=== PATIENT | female | born 1955 | race Caucasian/White ===

== ENCOUNTER → 2022-07-09 09:47 | Outpatient (BNVA) | payer MEDICARE, SELFPAY | PROVIDERS: Family Provider Pediatrics; PCP Pediatrics; Referring Provider Dermatology; Visit Provider Orthopaedic Surgery | DX: S46.011A Strain of muscle(s) and tendon(s) of the rotator cuff of right shoulder, initial encounter (principal) | CPT/HCPCS: 99203 ==

== ENCOUNTER → 2022-07-30 09:43 | Outpatient (BNVA) | payer MEDICARE, SELFPAY | PROVIDERS: Family Provider Pediatrics; PCP Pediatrics; Visit Provider Orthopaedic Surgery | DX: W06.XXXA Fall from bed, initial encounter (principal); M19.011 Primary osteoarthritis, right shoulder; S46.011A Strain of muscle(s) and tendon(s) of the rotator cuff of right shoulder, initial encounter | CPT/HCPCS: 99213 ==

== ENCOUNTER 2022-08-22 05:27 | Day surgery (SDC) | payer MEDICARE, SELFPAY ==
[2022-08-21 11:30] VITALS: BMI 43.9
[2022-08-22] VITALS (14 sets, daily range): BP systolic 151–179; BP diastolic 72–92; PULSE 62–79; RESP 16–24; TEMP 36.3–36.6; O2SAT 90–98
[2022-08-22] MEDS: acetaminophen 500 mg Tablet 1000 MG PO (06:14)
[2022-08-22] MEDS: CELEcoxib 200 mg Capsule 400 MG PO (06:16)
[2022-08-22] MEDS: sodium chloride 0.9% 1,000 ML 30 ML IV (06:27)
--- NOTE | 2022-08-22 06:59 | W.PM.OPSUD ---
Surgery/Procedure H&P Update DATE OF PROCEDURE: August 22, 2022 DATE H&P PERFORMED: 07/30/22 H&P UPDATE INFORMATION: I have reviewed H&P completed within last 30 days PREOP DIAGNOSIS: Left rotator cuff tear PLANNED PROCEDURE: Operation Date: 08/22/22 07:00 Proposed Procedures p right shoulder arthroscopy with rotator cuff repair/ 58332 S46.011A(Right) - Seb Calderón MD s Rotator Cuff Repair(Right) - Seb Calderón MD
[2022-08-22] MEDS: ceFAZolin 2,000 MG in sodium chloride 0.9% (plus) 50 ML 100 MG IV (07:09)
--- NOTE | 2022-08-22 08:43 | P.OP_ITS ---
Operative Report Date of procedure: August 22, 2022 Pre-op diagnosis: Preop Diagnosis Left rotator cuff tear, impingement Post-op diagnosis: same Procedure done: Arthroscopic repairrotator cuff with bio inductive implant, subacromial decompression left shoulder Implants: Cho and Nephew Regeneten implant, Cho [employer] Nephew Helicoil 4.5 mm anchor with tape Pathology: none sent Anesthesia: General and Nerve Block (Interscalene) Estimated blood loss (mL): 10 Findings: The patient had a degenerative rotator cuff with partial-thickness tearing throughout the supraspinatus insertion and a small area of full-thickness tearing perhaps 5 mm in diameter involving the anterior cable. She had prominent anterior spurring. Her biceps tendon attachment was intact and there was minimal degeneration of the intra-articular base. No chondromalacia was identified. Condition: stable Disposition: PACU Brief History: Ms. Yun is a 66-year-old female who injured her left shoulder with a fall out of bed 6 months ago with persistent pain. MRI revealed Small area of full- thickness rotator cuff tearing and degeneration of the rotator cuff. She is managing with physical therapy without improvement. She elected for rotator cuff repair to improve pain and function. Procedure: The patient was given interscalene block in holding. She was taken to the operating room and given 2 g of Ancef. She was positioned in the lateral position with her right arm in 15 mL 20 pounds of traction. A timeout was performed. Posterior portal was made 2 cm inferior medial to the posterior corner of acromion. A scope cannula and trocar were driven into the glenohumeral joint. An 8 mm anterior inflow cannula was placed. The diagnostic portion arthroscopy was performed. Essentially no degenerative changes were seen in the humeral head or glenoid. Her labral attachments the reasonably healthy and her biceps tendon revealed only minor degeneration. The undersurface of the rotator cuff was inspected revealing areas of partial- thickness articular sided tearing with more extensive tearing anteriorly. The scope was then moved to the subacromial space and an 8 mm inflow cannula placed anteriorly. A spinal needle was used to localize a lateral portal. Bursal tissue was removed with the Cho and Nephew Werewolf and the supraspinatus tendon identified. The area of full-thickness tearing was identified in the anterior rotator cuff. The shaver was used to debride the greater tuberosity footprint anteriorly. Through a lateral stab wound a Cho and Nephew Helicoil 4.5 mm anchor was placed. The Cho and Nephew FirstPass suture passer was used to shuttle 1 limb of tape through the area of full-thickness tearing I directed 1 suture as posteriorly as possible through the cuff and 1 anteriorly. Suture was secured drawing the rotator cuff down to the debrided footprint. As widespread tendinosis was identified in the supraspinatus tendon on MRI and arthroscopy decision was made to proceed with biological augmentation. Through a lower lateral stab wound a Cho and Nephew Regeneten past. It was fixed medially with 2 soft tissue silviano. A third staple was placed in the midsection anteriorly and a fourth in for staple posteriorly. Free bone silviano were placed laterally securing the most lateral edge of the patch to bone completely overlying the repair. The shoulder was irrigated with saline. Portals were closed with 3-0 Prolene. Sterile dressings were applied. The patient was placed in a sling, extubated, and taken to recovery room in stable condition.
--- NOTE | 2022-08-22 08:53 | ANES.PREANE2 ---
Pre-Anesthetic Assessment Height/Weight: Height 1.52 m Weight 102.058 kg Temp Pulse Resp BP Pulse Ox O2 Del Method 97.9 F 77 16 179/86 96 08/22/22 06:07 08/22/22 06:07 08/22/22 06:07 08/22/22 06:07 08/22/22 06:07 08/22/22 06:07 Preop Diagnosis: Left rotator cuff tear Operation Date: 08/22/22 07:00 Proposed Procedures p right shoulder arthroscopy with rotator cuff repair/ 37772 S46.011A(Right) - Seb Calderón MD s Rotator Cuff Repair(Right) - Seb Calderón MD Familial anesthetic complications: none Was Beta Jeff taken within 24 hours: N/A Was Clonidine taken within 24 hours: N/A Last intake: Intake Last Liquid Date 08/21/22 Last Liquid Time 21:00 Last Solid Date 08/21/22 Last Solid Time 21:00 Social No alcohol and No tobacco Exam alert, oriented x 3, clear to auscultation bilaterally and regular rate & rhythm Airway Submandibular: within normal limits Cervical ROM: within normal limits Mallampati: Class II Dentition: chipped CV/HEM Hypertension Metabolic Hyperlipidemia and Morbid Obesity Anesthetic Plan ASA status: 3 Anesthesia: General and Regional (specify below) (Right interscalene nerve blk) Medications/Allergies Home Medications Medication Instructions Recorded Confirmed Last Taken Type amlodipine 10 mg tablet 10 mg PO DAILY 07/09/22 08/22/22 08/21/22 History gabapentin 300 mg capsule 300 mg PO BID 07/09/22 08/21/22 08/21/22 History pravastatin 40 mg tablet 40 mg PO DAILY 07/09/22 08/22/22 08/21/22 History cyclobenzaprine 5 mg tablet 5 mg PO TID PRN Muscle Spasm 08/21/22 08/21/22 Unknown History oxycodone 5 mg tablet 5 mg PO Q4H PRN pain #40 tabs 08/22/22 Unknown Rx Allergies Allergy/AdvReac Type Severity Reaction Status Date / Time codeine Allergy Mild ADR-Faintin Verified 08/15/22 11:42 g Current Medications Generic Name Dose Route Start Last Admin Trade Name Freq PRN Reason Stop Dose Admin Sodium Chloride 1,000 mls @ 30 mls/hr 08/22/22 05:45 08/22/22 06:27 Sodium Chloride 0.9% IV 08/23/22 05:44 30 mls/hr .Q24H MAK Administration PFSH Anesthesia Social History Smoking and tobacco status: never smoked Alcohol intake: never Substance/Drug Use: never Data Anesthesia Cardiac Studies: No Data to Display Anesthesia Procedures Nerve Block Nerve Block 1: Main Anesthesia: general anesthesia Time Out Performed: Yes Consent: requested by attending/covering physician, from patient, risks and benefits reviewed and patient agrees to proceed Nerve block location: interscalene (right) Anesthesia monitors applied: pulse oximetry, EKG, BP cuff and oxygen Nerve block position: semi sitting Anesthetic Used: ropivicaine 0.5% Amount of anesthesia used (mL): 30 Ultrasound used to: recognize landmarks and visualize and ID brachial plexus Interscalene/Femoral BLK: 2 stimuplex 22 g needle used for position and inplane approach Injection: neg aspiration of heme Patient Tolerated Procedure: well Complications: none
--- NOTE | 2022-08-22 09:39 | SUR.PHASEI ---
0906 PT TO PACU 5 PT WITH ORAL AIRWAY IN PLACE WITH GOOD RESP EFFORT NOTED 8L MASK TO PT, IV TO LT AC #22 WITH 350 ML NS AT KVO RATE PATENT ID BRACELET TO LT WRIST PT ID'D X 2 IDENTIFIERS PT MONIOTR SR WITH NO ECTOPY NOTED RT SHOULDER DRESSING D/I WITH FIRST ICE TO SITE, SLING TO RT ARM DISTAL FINGERS PINK WARM WITH CAP REFILL LESS THAN 3 SECONDS. BILAT SCDS ON AND WORKING HOB AT 30 DEGREES. 0912 PT AWAKES ORAL AIRWY OUT PT DENIES PAIN AND NAUSEA, HOB UP TO 40 DEGREES , DRESSING D/I PT TALKATIVE AND COUGHING OFF AND ON, GOOD RESP EFFORT NOTED NO DISTRESS, VSS MONITOR UNCHANGED.
--- NOTE | 2022-08-22 09:49 | SUR.PHASEI ---
0925 PT MORE AWAKE, PT STILL COUGHING FREQUENTLY SATS 88% ON RA , PT PLACED ON 2LNC SATS QUICKLY UP TO 92% PT HOB AT 45 DEGREES PT TAKING OCC ICE CHIPS.
--- NOTE | 2022-08-22 10:07 | SUR.PHASEI ---
7688 PT MOVED SELF UP IN BED TO BETTER POSITION, PT AWAKE ALERT ASKING FOR SPRITE, LUNGS CLEAR TO ALL [facility], NOT DIMINISHED RESPIRATIONS SLIGHTLY TACHYPNEIC BUT NOT LABORED. PT VERY TALKATIVE ASKING FOR PHASE 2 NURSE BRANT BY NAME, VSS. DRESSING D/I HANDOFF AT BEDSIDE.
[2022-08-22] MEDS: oxyCODONE-APAP 5-325 mg Tablet 1 TAB PO (10:35)
--- NOTE | 2022-08-22 12:17 | P.PCN_ITS ---
PACU note Narrative: VSS, Good respiratory effort, report to MACHINE OPERATOR ASSISTANT Exam: awake
--- NOTE | 2022-08-22 12:17 | PM.PACU ---
PACU note Narrative: VSS, Good respiratory effort, report to OFFICE CASHIER Exam: awake
--- NOTE | 2022-08-22 15:13 | ANE.PACU2 ---
Inpatient post-anesthesia follow up: Airway intact: Yes Vital signs: Temperature 98 F Pulse Rate 66 Respiratory Rate 17 Blood Pressure 155/72 Pulse Oximetry 98 Oxygen Delivery Me thod Nasal Cannula Oxygen Flow Rate 2.0 Fraction of Inspir ed Oxygen Hydration adequate: Yes Nausea and vomiting: No Pain level: 3 Mental status: Baseline Additional Comments: Some SOB likely from block of phrenic nerve, discussed with patient
== END 2022-08-22 11:10 | disposition home or self-care (01) ==
PROVIDERS: PCP Pediatrics; Visit Provider Orthopaedic Surgery
PROC: (CPT 29805; principal; 2022-08-22 07:00)
PROC: (CPT 29826; 2022-08-22 07:00)
DX: M75.102 Unspecified rotator cuff tear or rupture of left shoulder, not specified as traumatic (principal); M75.42 Impingement syndrome of left shoulder; I10 Essential (primary) hypertension; E78.5 Hyperlipidemia, unspecified; E66.01 Morbid (severe) obesity due to excess calories; Z68.41 Body mass index [BMI] 40.0-44.9, adult
CPT/HCPCS: 29826; 29827; C1713; J0690; J1100; J2250; J2405; J2704; J2795; J3010; J3490; J7030

== ENCOUNTER → 2022-09-04 11:07 | Outpatient (BNVA) | payer MEDICARE, SELFPAY | PROVIDERS: PCP Pediatrics; Visit Provider Orthopaedic Surgery | DX: Z98.890 Other specified postprocedural states (principal) | CPT/HCPCS: 99024 ==

== ENCOUNTER → 2022-10-22 11:01 | Outpatient (BNVA) | payer MEDICARE, SELFPAY | PROVIDERS: PCP Pediatrics; Visit Provider Orthopaedic Surgery | DX: Z47.89 Encounter for other orthopedic aftercare (principal) | CPT/HCPCS: 99024 ==

== ENCOUNTER → 2022-11-19 10:35 | Outpatient (BNVA) | payer MEDICARE, SELFPAY | PROVIDERS: PCP Pediatrics; Visit Provider Orthopaedic Surgery | DX: Z98.890 Other specified postprocedural states (principal) | CPT/HCPCS: 99024 ==

== ENCOUNTER → 2023-02-04 10:44 | Outpatient (BNVA) | payer MEDICARE, SELFPAY | PROVIDERS: PCP Pediatrics; Visit Provider Orthopaedic Surgery | DX: Z98.890 Other specified postprocedural states (principal); M67.911 Unspecified disorder of synovium and tendon, right shoulder | CPT/HCPCS: 20610; 99213; J0702; J3490 ==

== ENCOUNTER → 2023-03-04 10:56 | Outpatient (BNVA) | payer MEDICARE, SELFPAY | PROVIDERS: PCP Pediatrics; Visit Provider Nurse Practitioner Family | DX: Z98.890 Other specified postprocedural states (principal); M67.911 Unspecified disorder of synovium and tendon, right shoulder | CPT/HCPCS: 99213 ==

== ENCOUNTER → 2023-05-13 10:45 | Outpatient (BNVA) | payer MEDICARE, SELFPAY | PROVIDERS: PCP Pediatrics; Visit Provider Podiatrist Foot & Ankle Surgery | DX: Q66.221 Congenital metatarsus adductus, right foot; B35.1 Tinea unguium | CPT/HCPCS: 73630; 99203 ==